=== PATIENT | female | born 1980 | race Caucasian/White ===

== ENCOUNTER 2018-09-07 21:43 | Emergency (ER) | payer SELFPAY ==
[2018-09-07 21:45] VITALS: BP 114/79; PULSE 87; RESP 24; TEMP 37.1; O2SAT 100; BMI 25.3
--- NOTE | 2018-09-07 21:50 | EKG12_ITS ---
Test Reason : FALL Blood Pressure : / mmHG Vent. Rate : 076 BPM Atrial Rate : 076 BPM P-R Int : 122 ms QRS Dur : 074 ms QT Int : 384 ms P-R-T Axes : 011 146 145 degrees QTc Int : 432 ms Consider limb lead misplacement Recommend repeat ecg ecg sent back to ED for review 09/12/18AM Confirmed by JUAN J WALL, NASRA ([id number]), school photograph editor ELENI PEREZ ([id number]) on 09/12/2018 12:50:16 PM Referred By: MICHELLE Confirmed By:NASRA ARITA MD
--- NOTE | 2018-09-07 21:51 | CT_ITS ---
STUDY: CT BRAIN WITHOUT CONTRAST REASON FOR EXAM: Female, 38 years old. Fell 6 feet off ladder while painting. Neck pain. RADIATION DOSAGE (If Supplied By Facility): CTDIvol = ( 44.99 ) mGy, DLP = ( 897.35 ) mGycm TECHNIQUE: Transaxial CT imaging of the brain was performed without administration of intravenous contrast material. Individualized dose optimization techniques were used for this CT. COMPARISON: No relevant priors. FINDINGS: The study was markedly limited due to positioning of the patient. Soft tissue hematoma over the left occipitoparietal region. Normal calvarium. Normal size ventricles and extra-axial spaces for the patient's age. Normal white matter tracts of the cerebral hemispheres. Normal basal ganglia and thalami. Normal brainstem. Normal cerebellum. There is no intracranial hemorrhage. There are no findings of an acute ischemic infarction. Normal visualized paranasal sinuses. CT/Brain/Head without Contrast IMPRESSION: 1. No acute intracranial or calvarial abnormality. 2. Soft tissue injury over the left occipitoparietal region. Electronically Signed: Ze Peguero DO at 22:12 EDT Tel [phone], Service support ,
--- NOTE | 2018-09-07 21:51 | CT_ITS ---
STUDY: CT CERVICAL SPINE WITHOUT CONTRAST REASON FOR EXAM: Female, 38 years old. 6 feet from ladder while painting. Neck pain. RADIATION DOSAGE (If Supplied By Facility): CTDIvol = ( 17.22 ) mGy, DLP = ( 431.07 ) mGycm TECHNIQUE: High resolution transaxial imaging was performed without contrast material. Sagittal and coronal images were reconstructed. Individualized dose optimization techniques were used for this CT. COMPARISON: None FINDINGS: Normal craniovertebral junction. Normal anterior atlantoaxial articulation. Normal odontoid process. Normal cervical lordosis. Normal vertebral bodies and posterior osseous elements. C2-3: Normal endplates. Normal disc height and morphology. Normal central canal and intervertebral neuroforamina. C3-4: Normal endplates. Normal disc height and morphology. Normal central canal and intervertebral neuroforamina. C4-5: Normal endplates. Normal disc height and morphology. Normal central canal and intervertebral neuroforamina. C5-6: Normal endplates. Normal disc height and morphology. Normal central canal and intervertebral neuroforamina. C6-7: Normal endplates. Normal disc height and morphology. Normal central canal and intervertebral neuroforamina. C7-T1: Normal endplates. Normal disc height and morphology. Normal central canal and intervertebral neuroforamina. Normal visualized soft tissue structures. CT/Spine Cervical without Contras IMPRESSION: No acute fracture or subluxation. Note: MRI is more sensitive than CT in detecting cord injury, ligamentous injury and epidural hematoma. If there is continued clinical concern for any of these entities, MRI should be considered. Electronically Signed: Ze Peguero DO at 22:16 EDT Tel [phone], Service support ,
--- NOTE | 2018-09-07 21:58 | ED.VIS.INJ ---
History of Present Illness Chief Complaint: Fall Informant: Family, Significant Other Onset: Today Mechanism/Context: Fall - 6 feet Location: Pain back of head Current Severity: . Patient disoriented unable to quantitate severity Maximum Severity: Unable to quantitate severity Worsened by: Unknown Relieved by: Nothing Associated Symptoms: Loss of consciousness, Amnesia Length of loss of consciousness: Known Narrative: Patient is a 38-year-old woman is brought to ER by significant other. She was painting. She fell from a 6 feet height backwards onto her head. There was reported loss of conscious. She was found by children unresponsive. Tetanus immunization unknown. is uncertain of meds etc. Per old records no allergies. History is limited Tetanus Immunization: Unknown Prior similar symptoms: No Recent Illness/Hospitalization: No - Past Medical History (1) No significant past medical history Status: Acute Past Medical History - Allergies and Home Meds Allergies/Adverse Reactions: Allergies No Known Allergies Allergy (Verified 09/07/18 21:53) Primary Care Physician: Vinny Turk [Primary Care Provider] - Review of Systems ROS: Unable to Obtain - 1 General: Denies: Fever Gastrointestinal: Reports: Nausea Skin: Denies: Rash Neurological: Reports: Headache Hematologic: Denies: Easy bruising Allergy: Denies: Uticaria Physical Exam Vital Signs/Narrative: Vital Signs Temp Pulse Resp BP Pulse Ox 09/07/18 21:45 98.8 F 87 24 H 114/79 100 Inital Vital Signs reviewed: Yes General: Well nourished, Well developed Head: Trauma, Tenderness Eyes: Perrl, EOMI. Negative for: Pale conjunctiva, Scleral icterus ENT: TM's clear, No hemotympanum or drainage, No trauma. Negative for: Hemotympanum Neck: Spinal Tenderness Cardiovascular: Regular rate, Regular rhythm, No murmurs, Normal S1, Normal S2 Respiratory: No distress, CTA bilaterally, Chest nontender Abdomen: Soft, Nontender, Nondistended, Normal bowel sounds, No masses Skin: Normal color, Trauma Neurological: Cranial nerves II-XII grossly intact, Normal Strength, Normal Sensation. Negative for: Alert, Oriented x3, Normal Gait Diagnostic/Tx/Re-eval Impressions Brain CT 09/07/18 21:51 IMPRESSION: 1. No acute intracranial or calvarial abnormality. 2. Soft tissue injury over the left occipitoparietal region. Electronically Signed: Ze Peguero DO at 22:12 EDT Tel [phone], Service support , Cervical Spine CT 09/07/18 21:51 IMPRESSION: No acute fracture or subluxation. Note: MRI is more sensitive than CT in detecting cord injury, ligamentous injury and epidural hematoma. If there is continued clinical concern for any of these entities, MRI should be considered. Electronically Signed: Ze Peguero DO at 22:16 EDT Tel [phone], Service support , 09/07/18 21:51 Brain/Head without Contrast [CT] Stat Spine Cervical without Contras [CT] Stat Laboratory Results 09/07/18 09/07/18 09/07/18 22:10 22:10 22:10 WBC 5.8 RBC 3.83 L Hgb 8.8 L Hct 28.6 L MCV 74.7 L MCH 23.0 L MCHC 30.8 L RDW 15.9 H RDW Differential 43.4 Plt Count 263 MPV 9.5 Immature Gran % (Auto) 0.000 Neut % (Auto) 67.0 Lymph % (Auto) 24.0 [place] % (Auto) 7.6 Eos % (Auto) 0.9 Baso % (Auto) 0.5 Absolute Neuts (auto) 3.9 Absolute Lymphs (auto) 1.39 Total Counted Not Reportable Differential Comment SCANNED PT 14.5 INR 1.2 APTT 32.9 Sodium 141 Potassium 3.5 Chloride 109 H Carbon Dioxide 27.0 Anion Gap 5 BUN 21 H Creatinine 0.81 Estim Creat Clear Calc 93.37 Est GFR (MDRD) Af Amer 103 Est GFR (MDRD) Non-Af 85 BUN/Creatinine Ratio 26.0 H Glucose 88 Calcium 8.2 L Ethyl Alcohol 09/07/18 22:10 WBC RBC Hgb Hct MCV MCH MCHC RDW RDW Differential Plt Count MPV Immature Gran % (Auto) Neut % (Auto) Lymph % (Auto) [place] % (Auto) Eos % (Auto) Baso % (Auto) Absolute Neuts (auto) Absolute Lymphs (auto) Total Counted Differential Comment PT INR APTT Sodium Potassium Chloride Carbon Dioxide Anion Gap BUN Creatinine Estim Creat Clear Calc Est GFR (MDRD) Af Amer Est GFR (MDRD) Non-Af BUN/Creatinine Ratio Glucose Calcium Ethyl Alcohol < 3.0 - Rhythm Strip Rhythm Strip: Sinus Rhythm Ectopy: None - EKG Initial EKG Interpretation: Sinus Rhythm - Ventricular rate 76. IN interval, QRS duration are normal. QTc normal. 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 - Medical Decision Making With history of closed head injury disorientation complaint of headache CT of the head was obtained and C-spine film. Patient remains confused she will need to be transferred to trauma center. Tetanus was updated. Blood work was obtained. Mccall was placed there is no urine output. Patient remains disoriented. She is directable. She will be transferred [facility] as a trauma patient. Patient was accepted by the ER physician at [facility]. Lacfrancie No standard instances Length: 0.24 in Depth: Sub Q Shape: Linear Prep: Sterile Conditions Irrigated (ml): 50 Number of Sutures/Myles: 1 - Staple Critical care time (excluding procedures): 30-74 minutes - 1 minutes. Discussion with family since patient not oriented, discussion with receiving facility and physician, facilitated transfer to [facility] and direct patient care. ED Disposition - Plan for ED Patient: Disposition: [facility] Diagnosis: Concussion with loss of consciousness <= 30 min, Sprain of ligaments of cervical spine, initial encounter, Occipital scalp laceration Referrals: Vinny Turk [Primary Care Provider] -
--- NOTE | 2018-09-07 22:01 | ED.DCSUM_ITS ---
History of Present Illness Chief Complaint: Fall Informant: Family, Significant Other Onset: Today Mechanism/Context: Fall - 6 feet Location: Pain back of head Current Severity: . Patient disoriented unable to quantitate severity Maximum Severity: Unable to quantitate severity Worsened by: Unknown Relieved by: Nothing Associated Symptoms: Loss of consciousness, Amnesia Length of loss of consciousness: Known Narrative: Patient is a 38-year-old woman is brought to ER by significant other. She was painting. She fell from a 6 feet height backwards onto her head. There was reported loss of conscious. She was found by children unresponsive. Tetanus immunization unknown. is uncertain of meds etc. Per old records no allergies. History is limited Tetanus Immunization: Unknown Prior similar symptoms: No Recent Illness/Hospitalization: No - Past Medical History (1) No significant past medical history Status: Acute Past Medical History - Allergies and Home Meds Allergies/Adverse Reactions: Allergies No Known Allergies Allergy (Verified 09/07/18 21:53) Primary Care Physician: Vinny Turk [Primary Care Provider] - Review of Systems ROS: Unable to Obtain - 1 General: Denies: Fever Gastrointestinal: Reports: Nausea Skin: Denies: Rash Neurological: Reports: Headache Hematologic: Denies: Easy bruising Allergy: Denies: Uticaria Physical Exam Vital Signs/Narrative: Vital Signs Temp Pulse Resp BP Pulse Ox 09/07/18 21:45 98.8 F 87 24 H 114/79 100 Inital Vital Signs reviewed: Yes General: Well nourished, Well developed Head: Trauma, Tenderness Eyes: Perrl, EOMI. Negative for: Pale conjunctiva, Scleral icterus ENT: TM's clear, No hemotympanum or drainage, No trauma. Negative for: Hemotympanum Neck: Spinal Tenderness Cardiovascular: Regular rate, Regular rhythm, No murmurs, Normal S1, Normal S2 Respiratory: No distress, CTA bilaterally, Chest nontender Abdomen: Soft, Nontender, Nondistended, Normal bowel sounds, No masses Skin: Normal color, Trauma Neurological: Cranial nerves II-XII grossly intact, Normal Strength, Normal Sensation. Negative for: Alert, Oriented x3, Normal Gait Diagnostic/Tx/Re-eval Impressions Brain CT 09/07/18 21:51 IMPRESSION: 1. No acute intracranial or calvarial abnormality. 2. Soft tissue injury over the left occipitoparietal region. Electronically Signed: Ze Peguero DO at 22:12 EDT Tel [phone], Service support , Cervical Spine CT 09/07/18 21:51 IMPRESSION: No acute fracture or subluxation. Note: MRI is more sensitive than CT in detecting cord injury, ligamentous injury and epidural hematoma. If there is continued clinical concern for any of these entities, MRI should be considered. Electronically Signed: Ze Peguero DO at 22:16 EDT Tel [phone], Service support , 09/07/18 21:51 Brain/Head without Contrast [CT] Stat Spine Cervical without Contras [CT] Stat Laboratory Results 09/07/18 09/07/18 09/07/18 22:10 22:10 22:10 WBC 5.8 RBC 3.83 L Hgb 8.8 L Hct 28.6 L MCV 74.7 L MCH 23.0 L MCHC 30.8 L RDW 15.9 H RDW Differential 43.4 Plt Count 263 MPV 9.5 Immature Gran % (Auto) 0.000 Neut % (Auto) 67.0 Lymph % (Auto) 24.0 [place] % (Auto) 7.6 Eos % (Auto) 0.9 Baso % (Auto) 0.5 Absolute Neuts (auto) 3.9 Absolute Lymphs (auto) 1.39 Total Counted Not Reportable Differential Comment SCANNED PT 14.5 INR 1.2 APTT 32.9 Sodium 141 Potassium 3.5 Chloride 109 H Carbon Dioxide 27.0 Anion Gap 5 BUN 21 H Creatinine 0.81 Estim Creat Clear Calc 93.37 Est GFR (MDRD) Af Amer 103 Est GFR (MDRD) Non-Af 85 BUN/Creatinine Ratio 26.0 H Glucose 88 Calcium 8.2 L Ethyl Alcohol 09/07/18 22:10 WBC RBC Hgb Hct MCV MCH MCHC RDW RDW Differential Plt Count MPV Immature Gran % (Auto) Neut % (Auto) Lymph % (Auto) [place] % (Auto) Eos % (Auto) Baso % (Auto) Absolute Neuts (auto) Absolute Lymphs (auto) Total Counted Differential Comment PT INR APTT Sodium Potassium Chloride Carbon Dioxide Anion Gap BUN Creatinine Estim Creat Clear Calc Est GFR (MDRD) Af Amer Est GFR (MDRD) Non-Af BUN/Creatinine Ratio Glucose Calcium Ethyl Alcohol < 3.0 - Rhythm Strip Rhythm Strip: Sinus Rhythm Ectopy: None - EKG Initial EKG Interpretation: Sinus Rhythm - Ventricular rate 76. OR interval, QRS duration are normal. QTc normal. 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 - Medical Decision Making With history of closed head injury disorientation complaint of headache CT of the head was obtained and C-spine film. Patient remains confused she will need to be transferred to trauma center. Tetanus was updated. Blood work was obtained. Mccall was placed there is no urine output. Patient remains disoriented. She is directable. She will be transferred [facility] as a trauma patient. Patient was accepted by the ER physician at [facility]. Lacfrancie No standard instances Length: 0.24 in Depth: Sub Q Shape: Linear Prep: Sterile Conditions Irrigated (ml): 50 Number of Sutures/Myles: 1 - Staple Critical care time (excluding procedures): 30-74 minutes - 1 minutes. Discussion with family since patient not oriented, discussion with receiving facility and physician, facilitated transfer to [facility] and direct patient care. ED Disposition - Plan for ED Patient: Disposition: [facility] Diagnosis: Concussion with loss of consciousness <= 30 min, Sprain of ligaments of cervical spine, initial encounter, Occipital scalp laceration Referrals: Vinny Turk [Primary Care Provider] -
[2018-09-07 22:15] VITALS: BP 114/73; PULSE 79; RESP 16; O2SAT 99
[2018-09-07] MEDS: Morphine 4 MG/ML Syringe IV (22:41)
[2018-09-07] MEDS: Ondansetron 4 MG/2 ML Vial IV (22:41)
[2018-09-07] MEDS: Diphth,Pertuss(Acell),Tet Vac 0.5 ML Vial IM (22:42)
[2018-09-07 22:46] LABS: Absolute Lymphocyte Count 1.39 X10^3/ul (0.83-4.51); Absolute Neutrophil Count 3.9 X10^3/uL (2.0-7.7); Basophil# 0.03 X10^3/uL; Basophil% 0.5 % (0-1); Differential Indicated SCAN CRITERIA MET; Eosinophil# 0.05 X10^3/uL; Eosinophils% 0.9 % (0-5); Hematocrit 28.6 % (37-47); Hemoglobin 8.8 g/dl (12.0-15.0); International Normalized Ratio 1.2; Lymphocyte # 1.39 X10^3/ul (4.0); Mean Corp Hgb Conc 30.8 g/gl (32-36); Mean Corpuscular Volume 74.7 fL (81-99); Mean Platelet Vol. 9.5 fl (6.2-12.0); Monocyte# 0.44 X10^3/uL; Monocyte% 7.6 % (0-10); Neutrophil # 3.87 X10^3/uL (2.7-7.7); POSITIVE COUNT NO; POSITIVE DIFFERENTIAL NO; POSITIVE MORPHOLOGY YES; Platelet Count 263 K/mm3 (150-450); Prothrombin Time (Protime)PT. 14.5 SECONDS (11.7-14.9); RBC Distribution Width CV 15.9 % (11.6-14.6); RBC Distribution Width SD 43.4 fl (35.1-43.9); Red Blood Count 3.83 M/mm3 (4.2-5.4); White Blood Count 5.8 K/mm3 (4.4-11.0)
[2018-09-07 22:47] LABS: Partial Thromboplast Time 32.9 Seconds (24.1-36.2)
[2018-09-07 22:53] LABS: Anion Gap 5 (5-15); BUN 21 mg/dL (7-18); Calcium,Total 8.2 mg/dL (8.5-10.1); Chloride 109 mmol/L (98-107); Creatinine, Serum 0.81 mg/dL (0.55-1.02); EST Glomerular Filtration Rate 85 mL/min (>60); Est Glom Filt Rate - Afr Amer 103 mL/min (>60); Estimated Creatinine Clearance 93.37 ml/min; Glucose 88 mg/dL (74-106); Potassium 3.5 mmol/L (3.5-5.1); Sodium Level 141 mmol/L (136-145)
[2018-09-07 22:58] LABS: Differential Comment SCANNED
[2018-09-07 23:00] VITALS: BP 121/78; PULSE 84; RESP 16; O2SAT 100
[2018-09-07 23:07] LABS: Alcohol, Blood (Medical)-Serum < 3.0 mg/dL
[2018-09-07 23:33] LABS: Internal QC Validated? YES +Cl - CLEAR BKGD; Pregnancy, Serum, hCG Quali. NEGATIVE Negative
[2018-09-07 23:47] VITALS: BP 120/72; PULSE 87; RESP 14; O2SAT 100
[2018-09-07 23:57] VITALS: TEMP 37.1
== END 2018-09-08 00:05 | disposition short-term general hospital (02) ==
PROVIDERS: Emergency Provider Emergency Medicine; Family Provider Family Medicine; PCP Family Medicine
DX: S06.0X1A Concussion with loss of consciousness of 30 minutes or less, initial encounter (principal); S01.01XA Laceration without foreign body of scalp, initial encounter; S13.4XXA Sprain of ligaments of cervical spine, initial encounter; W11.XXXA Fall on and from ladder, initial encounter; Y93.89 Activity, other specified; Y92.9 Unspecified place or not applicable
CPT/HCPCS: 51702; 70450; 72125; 80048; 80320; 84703; 85025; 85610; 85730; 90715; 93005; 96374; 96375; 99285; A4216; G0480; J2405